=== PATIENT | male | born 1940 | race Caucasian/White ===

== ENCOUNTER 2017-12-12 06:27 | Inpatient (IN) | payer OTHER ==
[2017-12-09 12:46] VITALS: BMI 27.3
[2017-12-12] MEDS ORDERED: oxyCODONE HCL 10 MG SUSTAINED ACTING TABLET PO STA (06:47)
--- NOTE | 2017-12-12 06:47 | HP ---
History & Physical Update - History History: No Change - Physical Physical: No Change - Assessment Assessment: No Change - Plan Plan: No Change (Initial H&P completed 12/04/17 by MD Kristian. No new complaints or medications. C/o h/o LBP with numbness radiating down both LE to feet. Here today for elective L4/5 TLIF)
[2017-12-12] MEDS ORDERED: GELATIN, ABSORBABLE 100 EACH SPONGE TP ONE (06:57)
[2017-12-12] MEDS ORDERED: THROMBIN (BOVINE) 5,000 UNIT VIAL TP ONE ×3 (06:57→10:10)
[2017-12-12] MEDS ORDERED: LIDOCAINE 1%/EPI 1:100000 (20 ML MULTI DOSE VIAL) ONE (06:57)
[2017-12-12] MEDS ORDERED: BUPIVACAINE HCL/PF (5 MG/ML) 30 ML VIAL IJ ONE (07:24)
[2017-12-12] MEDS ORDERED: MIDAZOLAM HCL 2 MG/2 ML SINGLE DOSE VIAL ONE (07:24)
[2017-12-12] MEDS ORDERED: BUPIVACAINE LIPOSOME/PF (EXPAREL) 266 MG/20 ML VIAL ONE (07:24)
[2017-12-12] MEDS ORDERED: PROPOFOL 20 ML ONE (08:44)
[2017-12-12] MEDS ORDERED: SUCCINYLCHOLINE CHLORIDE 200 MG/10 ML VIAL ONE (08:45)
[2017-12-12] MEDS ORDERED: ceFAZolin SODIUM 1 GM VIAL ONE (08:57)
[2017-12-12] MEDS ORDERED: ONDANSETRON 4 MG/2 ML VIAL ONE (08:57)
[2017-12-12] MEDS ORDERED: DEXAMETHASONE SOD PHOSPHATE 4 MG/1 ML VIAL ONE (08:57)
--- NOTE | 2017-12-12 11:14 | OP ---
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
--- NOTE | 2017-12-12 11:15 | SURG ---
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 For further detail, please refer to operative report. Visit type - Case Type Case Type: Scheduled - New patient This patient is new to me today: Yes Date on this admission: 12/12/17
[2017-12-12] MEDS ORDERED: oxyCODONE HCL 5 MG TABLET PO PRN ×2 (11:16)
[2017-12-12] MEDS ORDERED: ONDANSETRON 4 MG/2 ML VIAL IVPUSH PRN (11:16)
[2017-12-12] MEDS ORDERED: ACETAMINOPHEN 325 MG TABLET (FP) PO SCH (11:30)
[2017-12-12] MEDS ORDERED: LACTATED RINGERS SOLUTION 1,000 ML IV SCH (11:30)
[2017-12-12] MEDS ORDERED: ACETAMINOPHEN 325 MG TABLET (FP) ONE (12:10)
[2017-12-12] MEDS ORDERED: ACETAMINOPHEN 325 MG TABLET (FP) PO ONE (12:15)
[2017-12-12 13:31] VITALS: TEMP 97.6
--- NOTE | 2017-12-12 13:44 | OP ---
DATE OF OPERATION: 12/12/2017 PREOPERATIVE DIAGNOSES: 1. Spinal stenosis, L4-5. 2. Spondylolisthesis, L4-5. POSTOPERATIVE DIAGNOSES: 1. Spinal stenosis, L4-5. 2. Spondylolisthesis, L4-5. PROCEDURE PERFORMED: 1. Transforaminal lumbar interbody fusion at L4-5. 2. Placement of instrumentation. 3. Placement of prosthetic cage. SURGEON: Justice Gagnon MD PRIMARY CLASS TEACHER: CANDELARIO Savage ESTIMATED BLOOD LOSS: 50 mL INTRAVENOUS FLUIDS: Per Anesthesia. ANESTHESIA: Spinal/TLIP. COMPLICATIONS: None. DISPOSITION: Patient brought to the PACU in stable condition. INDICATIONS FOR SURGERY: The patient is a 77-year-old gentleman who has been suffering from pain from his back down his legs. X-rays and MRI were completed which noted that he had spinal stenosis at L4-5 secondary to a spondylolisthesis. He had gone through an exhaustive course of treatment for this which included medications, physical therapy, as well as injections. Unfortunately, his pain continued to persist despite all this. At this point, risks, benefits, and alternatives were discussed, and the patient consented to surgery. DESCRIPTION OF PROCEDURE: Patient was brought to the operating room by the anesthesia staff. After appropriate patient identification was performed, spinal anesthesia was given. A TLIP block was also given. Patient was able to position himself prone onto the OR table with all areas of bony prominences well padded at this time. The C-arm was brought in, and the L4 and L5 pedicles were marked off . Next, 10 mL of lidocaine with epinephrine were injected into his back at this time. His back was prepped and draped in a sterile manner. At this point, timeout was completed, and incisions were made bilaterally over the L4 and L5 pedicles. Dissection was carried down to the fascia. Fascia was then split open at this time, and appropriate retractor was then placed in. The C-arm was brought in, and trocars were advanced into both the L4 and L5 pedicles. Through the trocars, wires were inserted. Over the wire, tap was performed. On the left-hand side, retractor blades were set up to expose the L4-5 facet joint. The facet joint was removed. The disk was visualized and entered. Using a series of pituitaries, Kerrisons, and curettes, diskectomy was completed. Endplates were decorticated at this time. Bone graft was laid down. A cage filled with bone graft was placed in. Tulip heads were placed over this. A miranda was measured and placed in. Caps and final tightening was performed. On the right-hand side, a miranda was measured and placed in the capsule, and final tightening was performed. All x-ray instrumentation was removed at this time. The fascia was closed with a number 1 Vicryl suture, subcutaneous tissues were closed with 2-0 Vicryl suture. Skin was closed with 3-0 Monocryl suture. Dermabond was applied. Steri-Strips were applied. A sterile dressing was applied. Patient was placed supine on the OR bed and brought to the PACU in stable condition. Luis Manuel CHACON/[id number]
[2017-12-12 14:08] VITALS: PULSE 72
[2017-12-12] MEDS ORDERED: CEFAZOLIN 2 GM/D5W 2 GM/50 ML ML IVPB ONE (15:00)
[2017-12-12] MEDS ORDERED: CEFAZOLIN 1 GM/D5W 1 GM/50 ML BAG ONE (15:03)
[2017-12-12 15:50] VITALS: BP 122/74
[2017-12-12] MEDS ORDERED: INSULIN SLIDING SCALE (NOVOLOG) 1 VIAL SQ SCH (16:30)
[2017-12-12] MEDS ORDERED: metFORMIN HCL 500 MG TABLET (FP) PO SCH (16:30)
[2017-12-12] MEDS ORDERED: diazePAM 2 MG TABLET PO SCH (22:00)
[2017-12-12] MEDS ORDERED: ATORVASTATIN CA 10 MG TABLET (FP) PO SCH (22:00)
[2017-12-13] MEDS ORDERED: sitaGLIPtin PHOSPHATE 50 MG TABLET PO SCH (07:00)
[2017-12-13] MEDS ORDERED: PATIENT'S OWN MEDICATION (NON-FORMULARY) (Cyanocobalamin (Vitamin B-12) [Vitamin B-12] 1,0 PO SCH (10:00)
[2017-12-13] MEDS ORDERED: HYDROCHLOROTHIAZIDE 12.5 MG CAPSULE (FP) PO SCH (10:00)
[2017-12-13] MEDS ORDERED: CYANOCOBALAMIN 1,000 MCG TABLET (FP) PO SCH (10:00)
[2017-12-13] MEDS ORDERED: amLODIPine BESYLATE 5 MG TABLET (FP) PO SCH (10:00)
[2017-12-13] MEDS ORDERED: PATIENT'S OWN MEDICATION (NON-FORMULARY) (Lisinopril/Hydrochlorothiazide [Lisinopril-Hctz PO SCH (10:00)
[2017-12-13] MEDS ORDERED: LISINOPRIL 20 MG TABLET (FP) PO SCH (10:00)
[2017-12-13] MEDS ORDERED: PATIENT'S OWN MEDICATION (NON-FORMULARY) (Simvastatin [Simvastatin] 10 MG) PO SCH (10:00)
== END 2017-12-12 16:15 | disposition home or self-care (01) | DRG 460 ==
LOC: FM/S 06:27
PROVIDERS: ADMIT Orthopaedic Surgery Orthopaedic Surgery of the Spine; ATTEND Orthopaedic Surgery Orthopaedic Surgery of the Spine
PROC: 0SG00AJ Fusion of Lumbar Vertebral Joint with Interbody Fusion Device, Posterior Approach, Anterior Column, Open Approach (ICD-10-PCS; principal; 2017-12-12 09:20)
DX: M48.061 Spinal stenosis, lumbar region without neurogenic claudication (principal); M43.16 Spondylolisthesis, lumbar region; M54.16 Radiculopathy, lumbar region
CPT/HCPCS: 72100-TC-FY; 82962; 94760